=== PATIENT | male | born 1950 | race Caucasian/White ===

== ENCOUNTER → 2018-09-11 | Outpatient (CLI) | payer MEDICARE | END | disposition home or self-care (01) | LOC: LAB 12:37 | PROVIDERS: ATTEND Internal Medicine Cardiovascular Disease | DX: R79.1 Abnormal coagulation profile (principal) | CPT/HCPCS: 85610 ==

== ENCOUNTER → 2018-09-24 | Outpatient (CLI) | payer MEDICARE | END | disposition home or self-care (01) | LOC: Rad HDHVI 10:38 | PROVIDERS: ATTEND Internal Medicine Cardiovascular Disease | DX: I08.1 Rheumatic disorders of both mitral and tricuspid valves (principal); I50.23 Acute on chronic systolic (congestive) heart failure | CPT/HCPCS: 93306 ==

== ENCOUNTER → 2018-09-30 | Outpatient (CLI) | payer MEDICARE ==
[~2018-09-30] VITALS: Ht 182.9 cm; Wt 91.6 kg
[~2018-09-30] MED LIST: ADENOSINE 77 MG in GIVE UN-DILUTED 0 ML IV ONE; ADENOSINE 90 MG/30 ML INJ IV ONE
[2018-09-30 16:09] LABS: Basophils # (auto) 0 uL; Basophils % (auto) 0.6 % (0.0-2.0); Eosinophils # (auto) 0.1 uL; Eosinophils % (auto) 1.8 % (0.0-7.0); Hematocrit 46.7 % (41.0-53.0); Hemoglobin 15.4 g/dL (13.5-17.5); Lymphocytes # (auto) 1.2 uL; Lymphocytes % (auto) 25.2 % (10.0-50.0); Mean Corpuscular Hemoglobin 31.1 pg (28.0-32.0); Mean Corpuscular Volume 94.2 fL (80.0-100.0); Monocytes # (auto) 0.5 uL; Monocytes % (auto) 9.6 % (0.0-12.0); Neutrophils % (auto) 62.8 % (37.0-80.0); Nucleated Red Blood Cells % 0.4 %; Platelet Count (auto) 179 10^3/uL (140-450); Red Blood Cells 4.96 10^6/uL (4.5-5.90); Red Cell Distribution Width 13.5 % (11.8-14.3); White Blood Cell 4.8 10^3/uL (4.4-10.8)
[2018-09-30 16:13] LABS: Potassium 4.7 mmol/L (3.5-5.1)
[2018-09-30 16:23] LABS: Albumin 4.1 g/dL (3.4-5.0); BUN/Creatinine Ratio 17.9; Bilirubin, Total 0.7 mg/dL (0.2-1.0); Calcium 8.8 mg/dL (8.5-10.1); Free T4 (Free Thyroxine) 0.95 ng/dL (0.89-1.76); Prostate Specific Antigen 1.34 ng/mL (0.0-4.0); Total Protein 7.5 g/dL (6.4-8.2)
[2018-09-30 16:31] LABS: Urine Blood Negative /uL (Negative); Urine Specific Gravity 1.012 (1.001-1.035)
== END | disposition home or self-care (01) ==
LOC: Rad HDHVI 09:25
PROVIDERS: ATTEND Internal Medicine Cardiovascular Disease
DX: I42.0 Dilated cardiomyopathy (principal); E03.9 Hypothyroidism, unspecified; I50.23 Acute on chronic systolic (congestive) heart failure; I51.7 Cardiomegaly; I48.0 Paroxysmal atrial fibrillation; E11.9 Type 2 diabetes mellitus without complications; E55.9 Vitamin D deficiency, unspecified; E29.1 Testicular hypofunction; C61 Malignant neoplasm of prostate; D51.9 Vitamin B12 deficiency anemia, unspecified; N39.0 Urinary tract infection, site not specified; R79.1 Abnormal coagulation profile; Z95.0 Presence of cardiac pacemaker
CPT/HCPCS: 36415; 78452; 80053; 80061; 81003; 82306; 82607; 83036; 84153; 84403; 84439; 84443; 85025; 85610; 93005; 96374; 96375; A9500; J0153

== ENCOUNTER → 2018-10-28 | Outpatient (CLI) | payer MEDICARE | END | disposition home or self-care (01) | LOC: LAB 10:17 | PROVIDERS: ATTEND Internal Medicine Cardiovascular Disease | DX: R79.1 Abnormal coagulation profile (principal) | CPT/HCPCS: 85610 ==